=== PATIENT | female | born 1990 | race Caucasian/White ===

== ENCOUNTER 2021-10-04 20:24 | Emergency (ER) | payer MEDICAID ==
[~2021-10-04] VITALS: Ht 157.5 cm; Wt 66.0 kg
[2021-10-04 20:57] VITALS: BP 113/73
== END 2021-10-04 22:32 | disposition home or self-care (01) ==
LOC: ER 20:24 → EDBD 20:24 → ER 22:32
DX: U07.1 COVID-19 (principal); Z90.49 Acquired absence of other specified parts of digestive tract
CPT/HCPCS: 71045; 81025; 99284; C9803; U0003; U0005